=== PATIENT | female | born 1985 | race Caucasian/White ===

== ENCOUNTER 2017-04-01 22:00 | Emergency (ER) | payer OTHER ==
[~2017-04-01 22:00] MED LIST: OXYC1SOL5 PO
--- NOTE | 2017-04-01 22:28 | PD ---
HPI Chief Complaint Contractions at home strong and regular now they seem to space out Date Seen: Apr 01, 2017 Time Seen: 22:20 Travel History International Travel<30 Days: No Contact w/Intl Traveler<30Days: No Known Affected Area: No History of Present Illness HPI The patient is 31-year-old white female at [address] Gaffney presents complaining of contractions at home are regular and strong but since getting yearly spaced out some and also strong, no bleeding or leakage of fluid , heart rate tracing is reactive and she is lyn every 3-5 minutes and not that strongly Weeks Gestation: 40 Para: 1 : 3 Miscarriage: 1 History Obstetric History Obstetric History One vaginal delivery and she had a 16 week demise last year Social History Alcohol Use: No Tobacco Use: No Substance Abuse: No Allergies-Medications (Allergen,Severity, Reaction): Coded Allergies: No Known Allergies (Unverified , 12/30/15) Home Meds Active Scripts Oxycodone W/ Acetaminophen (Oxycodone/Acetaminophen 5-325 mg/5Ml) 5 mg/325 mg Tab, 2 TAB PO Q4H Y for PAIN SCALE 6 TO 10, #20 TAB Prov:Cody Benavides MD 12/31/15 Review of Systems General / Constitutional: No: Fever, Weight Gain, Chills, Other Eyes: No: Diploplia, Blurred Vision, Visual changes, Pain, Photophobia HENT: No: Headaches, Vertigo, Lightheadedness Cardiovascular: No: Irregular Rhythm, Chest Pain or Discomfort, Palpitations, Tachycardia, Syncope, Varicosities, Edema, Cyanosis Respiratory: No: Cough, Short of Breath, Other Gastrointestinal: No: Nausea, Vomiting, Diarrhea Genitourinary: No: Decreased Urinary Output, Oliguria Musculoskeletal: No: Limited ROM, Weakness, Cramping, Edema, Pain Skin: No Rash, No Itching, No Dryness, No Lumps, No Change in Pigmentation, No Change in Nails, No Alopecia, No Lesions Neurologic: No: Weakness, Dizziness, Syncope, Focal Abnormalities, Coordination Problem, Headache, Slurred Speech, Seizures Psychiatric: No: Depression, Suicidal Ideations, Homicidal Ideation Endocrine: No: Heat Intolerance, Cold Intolerance, Polydipsia, Polyuria, Other Physical Exam Narrative GENERAL: Well-nourished, well-developed patient. SKIN: Warm and dry. HEAD: Normocephalic and atraumatic. EYES: No scleral icterus. No injection or drainage. ENT: No nasal drainage noted. Mucous membranes pink. Airway patent. NECK: Supple, trachea midline. No JVD. CARDIOVASCULAR: Regular rate and rhythm without murmurs, gallops, or rubs. RESPIRATORY: Breath sounds equal bilaterally. No accessory muscle use. BREASTS: Bilateral exam showed no masses , no retractions, no nipple discharge. ABDOMEN/GI: Abdomen soft, non-tender, bowel sounds present, no rebound, no guarding Gravid to [40-] weeks size Fundal Height: [40-] GENITOURINARY: External Genitalia: intact and normal in appearance BUS glands: [-] Cervix: [-] Dilatation: [2-3-] Effacement: [-50] Station: [-3] Presentation: [vtx-] Membranes: [intact ] Uterine Contractions: [q 3-4 min-] FHT's: Category: [-1] Baseline: [133-] Reactive: [-yes] Variability: [-mod] Decels: [-none] EXTREMITIES: No cyanosis or edema. BACK: Nontender without obvious deformity. No CVA tenderness. NEUROLOGICAL: Awake and alert. Motor and sensory grossly within normal limits. Five out of 5 muscle strength in all muscle groups. Normal speech. MDM Interpretation(s) Patient's 31-year-old white female A1 at [address] Gaffney for care presents complaining of contractions that were strong and regular at home but since spaced out somewhat, no bleeding or leakage, heart rate tracing is reactive, she is lyn every 3-5 minutes not that strongly, cervix is 2-3 and 50% which Dr. Gaffney checked her and thought she was 2 and 50 % in the office several days ago Plan Plan to discharge patient home to bedrest, heating pad, Tylenol as needed, return for an increase in contraction strength, bleeding, leakage of fluid, otherwise see Dr. Gaffney for scheduled Diagnosis Diagnosis: Primary Impression: False labor after 37 weeks of gestation without delivery Disposition: 01 DISCHARGE HOME Condition: Stable Pola Oswald II, MD Apr 01, 2017 22:28
== END 2017-04-01 22:49 | disposition home or self-care (01) ==
LOC: HOBED 22:00
DX: O47.1 False labor at or after 37 completed weeks of gestation (principal); Z3A.40 40 weeks gestation of pregnancy
CPT/HCPCS: 59025

== ENCOUNTER 2017-04-02 02:57 | Inpatient (IN) | payer OTHER ==
[2017-04-02] VITALS (31 sets, daily range): BP systolic 101–156; BP diastolic 46–84; PULSE 60–193; RESP 18–20; TEMP 98.2–98.6; O2SAT 99
[2017-04-02] MEDS ORDERED: LACTATED RINGER'S 1000 ML INJ 1,000 ML IV PRN (03:30)
[2017-04-02] MEDS ORDERED: SODIUM CHLORID 0.9% 500 ML INJ 500 ML IV PRN (03:30)
[2017-04-02] MEDS ORDERED: CITRIC ACID-SODIUM CITRATE LIQ 30 ML UDC PO SCH (03:30)
[2017-04-02] MEDS ORDERED: LIDOCAINE HCL 1% 50 ML VIAL INFIL PRN (03:30)
[2017-04-02] MEDS ORDERED: LIDOCAINE HCL 1% 50 ML VIAL I-DERMAL PRN (03:30)
[2017-04-02] MEDS ORDERED: MINERAL OIL 10 ML VIAL TOPICAL PRN (03:30)
[2017-04-02] MEDS ORDERED: OXYTOCIN 30 UNITS-500ML PREMIX 500 ML IV ONE ×2 (03:30→06:30)
[2017-04-02] MEDS: LACTATED RINGER'S 1000 ML INJ 1,000 ML IV SCH ×3 (03:30→19:30)
--- NOTE | 2017-04-02 03:30 | HHI.HP ---
History & Physical H&P OB ED Note (Detail) Patient Name: Davida Lucas Unit Number: [id number] Date of : 1985 Patient Status: Departed Emergency Room Attending Doctor: Pola Oswald II, MD HPI HPI Chief Complaint Contractions at home strong and regular now they seem to space out Date Seen: Apr 01, 2017 Time Seen: 22:20 Travel History International Travel<30 Days: No Contact w/Intl Traveler<30Days: No Known Affected Area: No History of Present Illness HPI The patient is 31-year-old white female at [address] Gaffney presents complaining of contractions at home are regular and strong but since getting yearly spaced out some and also strong, no bleeding or leakage of fluid , heart rate tracing is reactive and she is lyn every 3-5 minutes Weeks Gestation: 40 Para: 1 : 3 Miscarriage: 1 History (Limited) History Obstetric History Obstetric History One vaginal delivery and she had a 16 week demise last year Social History Alcohol Use: No Tobacco Use: No Substance Abuse: No Allergies-Medications Allergies-Medications (Allergen,Severity, Reaction): Coded Allergies: No Known Allergies (Unverified , 12/30/15) Home Meds Active Scripts Oxycodone W/ Acetaminophen (Oxycodone/Acetaminophen 5-325 mg/5Ml) 5 mg/325 mg Tab, 2 TAB PO Q4H Y for PAIN SCALE 6 TO 10, #20 TAB Prov:Cody Benavides MD 12/31/15 ROS Review of Systems General / Constitutional: No: Fever, Weight Gain, Chills, Other Eyes: No: Diploplia, Blurred Vision, Visual changes, Pain, Photophobia HENT: No: Headaches, Vertigo, Lightheadedness Cardiovascular: No: Irregular Rhythm, Chest Pain or Discomfort, Palpitations, Tachycardia, Syncope, Varicosities, Edema, Cyanosis Respiratory: No: Cough, Short of Breath, Other Gastrointestinal: No: Nausea, Vomiting, Diarrhea Genitourinary: No: Decreased Urinary Output, Oliguria Musculoskeletal: No: Limited ROM, Weakness, Cramping, Edema, Pain Skin: No Rash, No Itching, No Dryness, No Lumps, No Change in Pigmentation, No Change in Nails, No Alopecia, No Lesions Neurologic: No: Weakness, Dizziness, Syncope, Focal Abnormalities, Coordination Problem, Headache, Slurred Speech, Seizures Psychiatric: No: Depression, Suicidal Ideations, Homicidal Ideation Endocrine: No: Heat Intolerance, Cold Intolerance, Polydipsia, Polyuria, Other Physical Exam Physical Exam Narrative GENERAL: Well-nourished, well-developed patient. SKIN: Warm and dry. HEAD: Normocephalic and atraumatic. EYES: No scleral icterus. No injection or drainage. ENT: No nasal drainage noted. Mucous membranes pink. Airway patent. NECK: Supple, trachea midline. No JVD. CARDIOVASCULAR: Regular rate and rhythm without murmurs, gallops, or rubs. RESPIRATORY: Breath sounds equal bilaterally. No accessory muscle use. BREASTS: Bilateral exam showed no masses , no retractions, no nipple discharge. ABDOMEN/GI: Abdomen soft, non-tender, bowel sounds present, no rebound, no guarding Gravid to [40-] weeks size Fundal Height: [40-] GENITOURINARY: External Genitalia: intact and normal in appearance BUS glands: [-] Cervix: [-] Dilatation: 5-6-] Effacement: [ 80] Station: [-3] Presentation: [vtx-] Membranes: [intact ] Uterine Contractions: [q 3-4 min-] FHT's: Category: [-1] Baseline: [133-] Reactive: [-yes] Variability: [-mod] Decels: [-none] EXTREMITIES: No cyanosis or edema. BACK: Nontender without obvious deformity. No CVA tenderness. NEUROLOGICAL: Awake and alert. Motor and sensory grossly within normal limits. Five out of 5 muscle strength in all muscle groups. Normal speech. Data Data MDM MDM Interpretation(s) Patient's 31-year-old white female A1 at [address] Gaffney for care presents complaining of contractions , no bleeding or leakage, heart rate tracing is reactive, she is lyn every 3-5 minutes not that strongly, cervix is 5-6 cm /80/-2 which is a change from when she was here earlier this shift Plan Plan to admit for labor management Diagnosis Diagnosis: Primary Impression: LABOR Disposition: Admit Condition: Stable Pola Oswald II, MD Apr 01, 2017 22:28 Pola Oswald II, MD Apr 02, 2017 03:30
[2017-04-02] MEDS ORDERED: fentaNYL 2MCG-BUPIV 0.125% INJ 100 ML ONE (03:33)
[2017-04-02] MEDS ORDERED: ePHEDrine/NS 25 MG/5 ML SYR ONE (03:34)
[2017-04-02] MEDS ORDERED: SODIUM CHLOR 0.9% 1000 ML INJ 1,000 ML IV PRN (03:50)
[2017-04-02 03:59] LABS: AUTOMATED NEUTROPHIL # 13.8 TH/MM3 (1.8-7.7); BASOPHIL # 0.1 TH/MM3 (0-0.2); BASOPHIL % 0.4 % (0.0-2.0); EOSINOPHIL % 0.2 % (0.0-4.0); HEMATOCRIT 39.7 % (35.0-46.0); HEMO FLAGS DIFF FINAL; LYMPH % 13.3 % (9.0-44.0); LYMPHOCYTE # 2.2 TH/MM3 (1.0-4.8); MEAN CORPUSCULAR HEMOGLOBIN 32.2 PG (27.0-34.0); MEAN CORPUSCULAR HGB CONC 33.9 % (32.0-36.0); MONO % 3.5 % (0.0-8.0); NEUT % 82.6 % (16.0-70.0); PLATELET COUNT 299 TH/MM3 (150-450); RED BLOOD COUNT 4.18 MIL/MM3 (4.00-5.30); RED CELL DISTRIBUTION WIDTH 13.1 % (11.6-17.2); WHITE BLOOD COUNT 16.7 TH/MM3 (4.0-11.0)
[2017-04-02 04:16] LABS: BACTERIA, URINE MOD /hpf; BLOOD, URINE NEG (NEG); COMMENT (UR) CULTURE INDICATED; CULTURE IF INDICATED CULTURE INDICATED; GLUCOSE,URINE 70 mg/dL (NEG); KETONE, URINE 10 mg/dL (NEG); MUCUS URINE MANY /lpf (OCC); NITRITE,URINE NEG (NEG); PH, URINE 6.5 (5.0-8.5); SQUAMOUS EPITHELIAL CELL URINE 2 /hpf (0-5); URINE COLOR YELLOW (YELLW/STRAW)
[2017-04-02] MEDS ORDERED: fentaNYL 2MCG-BUPIV 0.125% 100 ML EPIDURAL SCH (05:00)
[2017-04-02] MEDS ORDERED: DO NOT ADMINISTER ANTICOAGULANTS PRN (05:00)
[2017-04-02] MEDS ORDERED: ePHEDrine/NS 25 MG/5 ML SYR IV PUSH PRN (05:00)
[2017-04-02] MEDS ORDERED: NO SYSTEM NARCOTICS PRN (05:00)
[2017-04-02] MEDS ORDERED: MISOPROSTOL 100 MCG TAB ONE (06:06)
--- NOTE | 2017-04-02 06:28 | PD.OB.DELI ---
Weeks gestation: 40 Gest age assessed date: Apr 02, 2017 Gest age assessed time: 02:55 Pt started active labor?: Yes Active labor start date: Apr 02, 2017 Active labor start time: 02:55 Medical induction of labor?: No Artificial rupture of membrane: No Anesthesia: Epidural Episiotomy: None Vaginal Delivery: Normal Presentation: Occiput anterior Nuchal Cord: None Delayed cord clamping (45 sec): Yes : Female, Single Delivery date: Apr 02, 2017 Delivery time: 05:41 One Minute : 8 Five Minute : 9 Weight: 7-8 Placenta: Manual removal (waited 31 minutes for placenta to deliver then it was manually removed intact, no hemorrhage), Intact, 3 vessel cord Laceration: No lacerations Estimated blood loss: 300 ml Wilmer Vasquez MD Apr 02, 2017 06:28
[2017-04-02] MEDS ORDERED: BENZOCAINE 20% TOPICAL SPRAY 60 ML CAN TOPICAL PRN (06:30)
[2017-04-02] MEDS ORDERED: ACETAMINOPHEN 325 MG TAB PO PRN (06:30)
[2017-04-02] MEDS ORDERED: SODIUM CHLORIDE 0.9% FLUSH 10 ML FLUSH IV FLUSH PRN (06:30)
[2017-04-02] MEDS ORDERED: ONDANSETRON ODT 4 MG TAB PO PRN (06:30)
[2017-04-02] MEDS ORDERED: WITCH HAZEL 50%/GLYCERIN 12.5% 40 PAD JAR TOPICAL PRN (06:30)
[2017-04-02] MEDS ORDERED: ZOLPIDEM TARTRATE 5 MG TAB PO PRN (06:30)
[2017-04-02] MEDS ORDERED: OXYTOCIN 10 UNIT/ML AMP XX PRN (06:30)
[2017-04-02] MEDS ORDERED: ALUMINUM/MAGNESIUM/SIMETH 30 ML CUP PO PRN (06:30)
[2017-04-02] MEDS ORDERED: OXYTOCIN 30 UNITS-500ML PREMIX 500 ML IV SCH (06:30)
[2017-04-02] MEDS ORDERED: oxyCODONE/ACETAMINOPHEN 5 MG/325 MG TAB PO PRN ×2 (06:30)
[2017-04-02] MEDS: IBUPROFEN 600 MG TAB PO PRN ×3 (07:58→20:29)
[2017-04-02] MEDS: DOCUSATE SODIUM 50 MG/SENNA 8.6 MG TAB PO PRN ×2 (10:59→23:09)
[2017-04-02] MEDS ORDERED: ceFAZolin 2 GM PREMIX 50 ML IV ONE (13:00)
[2017-04-02] MEDS ORDERED: DIPHTH/TETANUS/ACEL PERTUSSIS (BOOSTER) 0.5 ML VIAL/PFS IM ONE (16:00)
[2017-04-02] MEDS ORDERED: MEASLES, MUMPS, RUBELLA VACCINE 0.5 ML VIAL SQ ONE (16:00)
[2017-04-02] MEDS: SODIUM CHLORIDE 0.9% FLUSH 10 ML FLUSH IV FLUSH SCH (21:00)
[2017-04-03] MEDS: IBUPROFEN 600 MG TAB PO PRN ×2 (02:43→08:11)
[2017-04-03] MEDS: LACTATED RINGER'S 1000 ML INJ 1,000 ML IV SCH ×2 (03:30→11:30)
--- NOTE | 2017-04-03 07:26 | HHI.OB ---
Subjective Post Day: 1 Remarks doing well Objective Vitals/I&O Vital Signs Date Time Temp Pulse Resp B/P (MAP) Pulse Ox O2 Delivery O2 Flow Rate FiO2 04/02/17 20:00 98.6 60 20 121/73 (89) 99 04/02/17 07:30 72 125/72 (89) Intake & Output 04/03/17 04/03/17 07:00 19:00 Intake Total 50 ml Balance 50 ml Intake IV Total 50 ml Objective Remarks GENERAL: Well-nourished, well-developed patient. CARDIOVASCULAR: Regular rate and rhythm without murmurs, gallops, or rubs. RESPIRATORY: Breath sounds equal bilaterally. No accessory muscle use. ABDOMEN/GI: Abdomen soft, non-tender. Fundus: Firm, non-tender at umbilicus. GENITOURINARY: Light to moderate bleeding. EXTREMITIES: No cyanosis or edema, non-tender, without signs of DVT. Medications and IVs Current Medications Medications (Trade) Dose Ordered Sig/Concetta Route Start Time Stop Time Status Last Admin Lactated Ringer's 1,000 ml @ 125 mls/hr Q8H IV 04/02/17 03:30 04/02/17 03:30 Lactated Ringer's 1,000 ml @ 3,000 mls/hr Q20M PRN IV 04/02/17 03:30 Sodium Chloride 1,000 ml @ 100 mls/hr Q10H PRN IV 04/02/17 03:50 (Xylocaine 1% Inj (50 ml)) 0.1 ml UNSCH X1 PRN I-DERMAL 04/02/17 03:30 04/05/17 03:29 (Bicitra Liq) 30 ml PRIVATE ADVISOR PO 04/02/17 03:30 04/06/17 03:29 (fentaNYL INJ) 50 mcg Q1H PRN IV PUSH 04/02/17 03:30 (fentaNYL INJ) 100 mcg Q1H PRN IV PUSH 04/02/17 03:30 (Xylocaine 1% Inj (50 ml)) 10 ml UNSCH X1 PRN INFIL 04/02/17 03:30 04/04/17 03:29 (Muri-Lube Oil) 10 ml UNSCH PRN TOPICAL 04/02/17 03:30 Fentanyl/ Bupivacaine HCl 100 ml @ 0 mls/hr TITRATE EPIDURAL 04/02/17 05:00 04/02/17 06:49 (NS Flush) 2 ml BID IV FLUSH 04/02/17 09:00 (NS Flush) 2 ml UNSCH PRN IV FLUSH 04/02/17 06:30 (Tylenol) 650 mg Q4H PRN PO 04/02/17 06:30 (Motrin) 600 mg Q6H PRN PO 04/02/17 06:30 04/03/17 02:43 (Percocet 5-325 Mg) 1 tab Q4H PRN PO 04/02/17 06:30 (Percocet 5-325 Mg) 2 tab Q4H PRN PO 04/02/17 06:30 (Americaine 20% Top Spr) 1 spray Q4H PRN TOPICAL 04/02/17 06:30 (Tucks Pads) 1 applic QID PRN TOPICAL 04/02/17 06:30 (Rafia-Colace) 2 tab Q12H PRN PO 04/02/17 06:30 04/02/17 23:09 (Ambien) 5 mg HS PRN PO 04/02/17 06:30 (Mag-Al Plus Susp Liq) 15 ml Q8H PRN PO 04/02/17 06:30 (Zofran Odt) 4 mg Q6H PRN PO 04/02/17 06:30 Assessment/Plan Problem List: (1) Spontaneous vaginal delivery ICD Codes: O80 - Encounter for full-term uncomplicated delivery Discharge Planning dc home Cody Benavides MD Apr 03, 2017 07:26
[2017-04-03] MEDS ORDERED: OXYC1TAB63 PO (07:27)
[2017-04-03 08:00] VITALS: BP 127/79; PULSE 65; RESP 18; TEMP 97.8
[2017-04-03] MEDS: SODIUM CHLORIDE 0.9% FLUSH 10 ML FLUSH IV FLUSH SCH (09:00)
== END 2017-04-03 15:21 | disposition home or self-care (01) | DRG 775 ==
LOC: HOBED 02:57 → H2EB 03:35 → H1EA 08:45
PROVIDERS: ADMIT Obstetrics & Gynecology; ATTEND Obstetrics & Gynecology
PROC: 10E0XZZ Delivery of Products of Conception, External Approach (ICD-10-PCS; principal; 2017-04-02)
DX: O80 Encounter for full-term uncomplicated delivery (principal); Z37.0 Single live birth; Z3A.40 40 weeks gestation of pregnancy
CPT/HCPCS: 59025; 81001; 85025; 86900; 86901; 87086; 90715; J0690; J2590; J7120